=== PATIENT | male | born 2000 | race African-American/Black ===

== ENCOUNTER 2025-08-13 17:46 | Inpatient (IN) | payer SELFPAY ==
[~2025-08-13] VITALS: Ht 167.6 cm; Wt 64.9 kg
[2025-08-13] VITALS (7 sets, daily range): BP systolic 121–146; BP diastolic 86–97; PULSE 92–118; RESP 18–24; TEMP 97.6–98.3; O2SAT 90–95
[2025-08-13] MEDS: DUONEB 0.5-3(2.5) MG/3 ML IH STA (18:17)
[2025-08-13] MEDS ORDERED: NS 1000ML 1,000 ML ONE (18:36)
[2025-08-13] MEDS ORDERED: DUONEB 0.5-3(2.5) MG/3 ML IH ONE (18:38)
[2025-08-13] MEDS: NS 1000ML 1,000 ML IV ONE (18:48)
[2025-08-13 18:52] LABS: BASOPHIL # 0.0 10^3/uL (0.0-0.1); BASOPHIL % 0.2 % (0.2-1.2); EOSINOPHIL # 0.1 10^3/uL (0.0-0.2); EOSINOPHIL % 0.5 % (0.0-5.0); HEMATOCRIT(ML) 49.0 % (37.0-53.0); IG % 0.20 % (0.00-0.50); LYMPHOCYTES # 2.45 10^3/uL1 (1.0-4.8); LYMPHOCYTES % 14.8 % (24.0-44.0); MEAN CORP HGB 29.2 pg (26-34); MEAN CORP HGB CONCENTRATION 33.9 g/dL (33-36.5); MEAN CORP VOLUME 86.1 fL (78-100); MONOCYTES # 1.2 10^3/uL (0.3-0.8); MONOCYTES % 7.3 % (5.0-12.0); NEUTROPHIL # 12.7 10^3/uL (1.8-7.7); NEUTROPHILS % 77.0 % (41.0-85.0); RED BLOOD CELL 5.69 10^6/uL (4.50-5.90); RED CELL DISTRIBUTION WIDTH 13.2 % (11.5-14.5); WHITE BLOOD CELL 16.5 10^3/uL (4.5-11.0)
[2025-08-13] MEDS ORDERED: NS 250ML 250 ML ONE (19:25)
[2025-08-13 19:27] LABS: ALANINE AMINOTRANSFERASE(ML) 33.0 U/L (12-78); ALBUMIN(ML) 4.3 g/dL (3.4-5.0); CREATININE SERUM 0.89 mg/dL (0.59-1.40); EST GFR, NON-AA 103.3 (>/=60); TROPONIN I HIGH SENSITIVITY 32.0 ng/L (0-75)
[2025-08-13] MEDS: ZITHROMAX 500 MG in NS 250ML 250 ML IV ONE (19:31)
[2025-08-13] MEDS: ROCEPHIN 2 GM-D5W BAG 50 ML IV STA (19:31)
[2025-08-13 19:49] LABS: INFLUENZA VIRUS A ANTIGEN NEGATIVE (NEG); INFLUENZA VIRUS B ANTIGEN NEGATIVE (NEG)
[2025-08-13] MEDS: DUONEB 0.5-3(2.5) MG/3 ML IH ONE (23:29)
[2025-08-14] VITALS (13 sets, daily range): BP systolic 110–124; BP diastolic 71–80; PULSE 81–104; RESP 16–20; TEMP 97.9–98.4; O2SAT 91–100
[2025-08-14] MEDS ORDERED: VENTOLIN INH PRN
[2025-08-14] MEDS: MUCINEX PO STA (00:15)
[2025-08-14] MEDS: NS 1000ML 1,000 ML IV SCH (00:15)
[2025-08-14] MEDS: LEVAQUIN 150 ML IV SCH (00:15)
[2025-08-14 02:01] LABS: UAMPH METHAMP(SCRN) NEGATIVE (co1000ng/mL); UR MDMA (ECSTASY) SCRN NEGATIVE (c/o300ng/mL); UR METHADONE SCRN NEGATIVE (c/o300ng/mL); UR PHENCYCLIDINE (PCP) SCRN NEGATIVE (c/o 25ng/mL); UR TETRAHYDROCANNABINOL SCRN NEGATIVE (c/o 50ng/mL)
[2025-08-14 02:03] LABS: UR OPIATE SCRN PRESUMPTIVE POSITIVE (c/o300ng/mL)
[2025-08-14] MEDS: DUONEB 0.5-3(2.5) MG/3 ML IH SCH (03:14)
[2025-08-14 06:02] LABS: CREATININE SERUM 0.87 mg/dL (0.59-1.40); EST GFR, NON-AA 106.1 (>/=60)
[2025-08-14 06:24] LABS: BASOPHIL # 0.0 10^3/uL (0.0-0.1); BASOPHIL % 0.2 % (0.2-1.2); EOSINOPHIL # 1.3 10^3/uL (0.0-0.2); EOSINOPHIL % 10.8 % (0.0-5.0); HEMATOCRIT(ML) 43.1 % (37.0-53.0); IG % 0.20 % (0.00-0.50); LYMPHOCYTES # 3.84 10^3/uL1 (1.0-4.8); LYMPHOCYTES % 31.2 % (24.0-44.0); MEAN CORP HGB 28.8 pg (26-34); MEAN CORP HGB CONCENTRATION 33.2 g/dL (33-36.5); MEAN CORP VOLUME 86.9 fL (78-100); MONOCYTES # 1.1 10^3/uL (0.3-0.8); MONOCYTES % 8.8 % (5.0-12.0); NEUTROPHIL # 6.0 10^3/uL (1.8-7.7); NEUTROPHILS % 48.8 % (41.0-85.0); RED BLOOD CELL 4.96 10^6/uL (4.50-5.90); RED CELL DISTRIBUTION WIDTH 13.6 % (11.5-14.5); WHITE BLOOD CELL 12.3 10^3/uL (4.5-11.0)
[2025-08-14] MEDS: MUCINEX PO SCH (08:29)
[2025-08-14] MEDS: LOVENOX SQ SCH (08:29)
[2025-08-14] MEDS ORDERED: WATER 20 ML ONE (16:32)
[2025-08-14] MEDS: SOLU-MEDROL IV ONE (16:35)
[2025-08-14] MEDS ORDERED: ZOFRAN IV PRN (22:00)
[2025-08-14] MEDS: PROTONIX IV IV SCH (22:41)
[2025-08-15] VITALS (12 sets, daily range): BP systolic 115–134; BP diastolic 59–81; PULSE 70–108; RESP 18–20; TEMP 97.5–98.9; O2SAT 92–98
[2025-08-15 05:42] LABS: BASOPHIL # 0.0 10^3/uL (0.0-0.1); BASOPHIL % 0.1 % (0.2-1.2); EOSINOPHIL # 0.0 10^3/uL (0.0-0.2); EOSINOPHIL % 0.0 % (0.0-5.0); HEMATOCRIT(ML) 43.5 % (37.0-53.0); IG % 0.30 % (0.00-0.50); LYMPHOCYTES # 1.04 10^3/uL1 (1.0-4.8); LYMPHOCYTES % 10.9 % (24.0-44.0); MEAN CORP HGB 29.0 pg (26-34); MEAN CORP HGB CONCENTRATION 34.0 g/dL (33-36.5); MEAN CORP VOLUME 85.1 fL (78-100); MONOCYTES # 0.4 10^3/uL (0.3-0.8); MONOCYTES % 3.9 % (5.0-12.0); NEUTROPHIL # 8.1 10^3/uL (1.8-7.7); NEUTROPHILS % 84.8 % (41.0-85.0); RED BLOOD CELL 5.11 10^6/uL (4.50-5.90); RED CELL DISTRIBUTION WIDTH 13.6 % (11.5-14.5); WHITE BLOOD CELL 9.6 10^3/uL (4.5-11.0)
[2025-08-15 05:55] LABS: CREATININE SERUM 0.78 mg/dL (0.59-1.40); EST GFR, NON-AA 120.3 (>/=60)
[2025-08-15] MEDS ORDERED: ALBU18HF IH (13:13)
[2025-08-15] MEDS ORDERED: LEVO-16 PO (13:13)
[2025-08-15] MEDS ORDERED: PRED20TA PO (13:13)
[2025-08-18 10:14] LABS: OPIATES Negative (Cutoff=200)
== END 2025-08-15 17:55 | disposition home or self-care (01) | DRG 189 ==
LOC: ER 17:46 → OBSVTOIN 20:58 → OBS 20:58 → MS 20:59 → OBS 08-14 00:51
PROVIDERS: ADMIT Internal Medicine; ATTEND Student in an Organized Health Care Education/Training Program
DX: J96.01 Acute respiratory failure with hypoxia (principal); Z79.899 Other long term (current) drug therapy; Z82.49 Family history of ischemic heart disease and other diseases of the circulatory system
CPT/HCPCS: 36415; 36600; 71045; 71260; 80048; 80053; 80307; 82803; 83605; 83880; 84145; 84484; 85025; 85379; 87040; 87070; 87205; 87426; 87804; 93005; 94640; 96361; 96365; 99291; A4216; G0378; J0456; J1650; J1956; J2919; J7030; J7050; Q9967; J2930; Q9965